=== PATIENT | male | born 1995 | race Caucasian/White ===

== ENCOUNTER 2016-11-25 07:31 | Emergency (ER) | payer BC, OTHER ==
[~2016-11-25] VITALS: Ht 185.4 cm; Wt 138.9 kg
[~2016-11-25 07:31] MED LIST: CLAR500T3 PO; METR-163 PO; OMEP20CA59 PO
[2016-11-25 07:34] VITALS: TEMP 36.4; Ht 185.4 cm; Wt 138.9 kg
[2016-11-25] MEDS ORDERED: PROPARACAINE HCL 0.5% OP SOLN 15 ML BTL ONE (07:49)
[2016-11-25] MEDS ORDERED: DEXT-119 PO (07:58)
--- NOTE | 2016-11-25 08:00 | EMERGENCY ROOM VISIT NOTE ---
History First contact with patient: 07:38 Chief Complaint: EYE ASSESSMENT Stated Complaint: EYE IRRITATION, SINUS INFECTION History of Present Illness The patient is a 21 year old male who presents to the Emergency Room with complaints of a chemical exposure of the patient's eyes. The patient reports that approximately 6 hours ago, he was sprayed with a chemical at work. He believes that it was most likely [place] [address] [employer] student records coordinator. He reports that initially, he rinsed out the eyes for approximately 4 minutes but then had to return to work. He states that one hour after the injury, he again rinsed out the eyes. The patient does not wear glasses or contacts. He currently is complaining of burning of both eyes, especially of the skin above the right eye. He states that the vision in the right eye is slightly blurry. Additionally, the patient reports that he has had yellowish nasal drainage in the mornings for the past several days. He occasionally has pain in his upper sinuses. He denies any cough, headaches, fevers, neck pain, sore throat or earaches. The patient rates his overall discomfort a 4/10. The patient also complains of occasional right ankle pain. He reports that he fractured his ankle 2 years ago and was seen by orthopedic provider in [place].. He reports he is unsure if he wore a cast or a walking boot. He states that he has occasional pain in the ankle while walking and especially with running. He was seen by another provider for this and they recommended at that time that he come to the emergency department for an x-ray, but he states that he was not able to at that time. The patient denies any numbness or weakness in the ankle. He has not followed up with his orthopedic provider for this. Review of Systems A complete 10-point Review of Systems was discussed with the patient, with pertinent positives and negatives listed in the History of Present Illness. All remaining Review of Systems questions can be considered negative unless otherwise specified. Past Medical/Surgical History No significant past medical history. Social History Smoking Status: Never Smoker Alcohol Use: occasionally Housing Status: lives with roommate Occupation Status: employed Current/Historical Medications Scheduled Dextromethorphan-Phenylephrine (Day Time Cold/Flu Relief), Unknown Dose PO BID Fluticasone Propionate (Nasal) (Flonase Allergy Relief), 1 SPRAY KAYDEN DAILY Allergies Coded Allergies: Amoxicillin (Verified Allergy, Unknown, ., 11/25/16) Physical Exam Vital Signs Date Time Temp Pulse Resp B/P Pulse Ox O2 Delivery O2 Flow Rate FiO2 11/25/16 09:06 83 18 120/69 96 Room Air 11/25/16 07:34 36.4 77 16 165/88 97 Room Air Right Eye Acuity: 20/70 Left Eye Acuity: 20/50 Physical Exam VITALS: Vitals are noted on the nurse's note and reviewed by myself. Vital signs stable. GENERAL: This is a 21-year-old male, in no acute distress, nondiaphoretic, well- developed well-nourished. SKIN: There is mild erythema at the right upper eyelid. EARS: External auditory canals clear, tympanic membranes pearly garcias without erythema or effusion bilaterally. EYES: Visual acuity 20/70 right eye, 20/50 left eye. Pupils equal round and reactive to light and accommodation. Moderate conjunctival injection right greater than left. No fluorescein uptake under UV light. No foreign body seen on foot lamp examination. NOSE: Patent, turbinates without inflammation or discharge. No sinus tenderness. MOUTH: Mucous membranes moist. Tonsils are not enlarged. Pharynx without erythema or exudate. NECK: Supple without nuchal rigidity. No lymphadenopathy. HEART: Regular rate and rhythm without murmurs gallops or rubs. LUNGS: Clear to auscultation bilaterally without wheezes, rales or rhonchi. No retractions or accessory muscle use. MUSCULOSKELETAL: No deformities of the right ankle. No ecchymosis, erythema or warmth. There is mild tenderness of the medial aspect of the distal tibia. Full range of motion of the ankle. Strength 5/5. NEURO: Patient was alert and oriented to person place and time. Normal sensation to light and sharp touch. Medical Decision & Procedures ER Provider Diagnostic Interpretation: RIGHT ANKLE MIN 3 VIEWS ROUTINE CLINICAL HISTORY: Right ankle pain. History of prior fracture. COMPARISON: None. DISCUSSION: Postsurgical changes are evident. There is evidence for a previously internally fixated distal fibular fracture. There is evidence for a previously internally fixated medial malleolar fracture. There are mild degenerative changes present within the tibiotalar joint. There are no acute fractures. There is a subtle lucency in the region of the tibial plafond. This may represent a small osteochondral defect. IMPRESSION: Postsurgical change. No acute fractures. Equivocal small osteochondral defect involving the tibial plafond. Medications Administered Medications (Trade) Dose Ordered Sig/Deonna Route Start Time Stop Time Status Last Admin Dose Admin Proparacaine HCl (Alcaine 0.5% Oph Soln) 225 drops STK-MED ONCE .ROUTE 11/25/16 07:49 11/25/16 07:52 DC 11/25/16 07:49 225 DROPS Ciprofloxacin HCl (Ciprofloxacin 0.3% Op Soln) 2 drops Q4H ONCE OP 11/25/16 08:30 11/25/16 08:31 DC 11/25/16 08:30 2 DROPS Medical Decision The patient presents with multiple complaints. I did contact the [facility] regarding his chemical exposure. They felt that further flushing of the eye would not be beneficial given that the injury occurred 6 hours ago. They did recommend performing a slit lamp examination and treating any findings. Slit-lamp examination was unremarkable. The patient was placed on Ciloxan drops to prevent any infection in the affected eye. The patient additionally complained of sinus pain and nasal congestion. I do not feel that his symptoms represent a bacterial sinusitis. He was instructed to take Flonase and follow-up with his primary care provider regarding the symptoms. An x-ray was obtained of the patient's right ankle at his request. He reports he broke the ankle a few years ago and has had continued pain. There are no acute findings and the patient was instructed to follow-up with his established orthopedic provider regarding this. Impression Primary Impression: Chemical exposure of eye Additional Impressions: Right ankle pain Nasal congestion Departure Information Dispostion Home / Self-Care Condition GOOD Prescriptions Fluticasone Propionate (Nasal) (Flonase Allergy Relief) 50 Mcg/Act Spr 1 SPRAY KAYDEN DAILY, #1 BTL Prov: Lucita Martini .CARISSA 11/25/16 Referrals No Doctor, Assigned (PCP) Tom Meyers D.O. Patient Instructions My [facility] Additional Instructions You have been prescribed Ciloxan eye drops. This is an antibiotic which will help to prevent an infection from developing in your affected eye. You should use 2 drops in the affected eye every 2 hours while awake for the first 2 days, then every 4 hours for the remaining 5 days. This is a total of a 7-day course for these antibiotic eye drops. You should schedule a follow-up with an aviation tactical readiness officer within 48 hours for a recheck of your eyes. Use the Flonase nasal spray as directed for nasal congestion. For pain control, you can use the following [id number] medicines (if >12 yo): - Regular strength (325mg/tab) Tylenol (acetaminophen) 2 tabs every 4-6 hours as needed. Do not exceed 12 tablets in a 24 hour period. Avoid taking more than 4 grams (4000 mg) of Tylenol per day. This includes any other sources of acetaminophen you may take on a regular basis. - Regular strength (200 mg/tab) Advil (ibuprofen) 1-2 tabs every 4-6 hours as needed. Do not exceed a dose of 3200 mg per day. Follow-up with your orthopedic provider regarding your ankle pain. Return to the emergency department with any worsening vision, worsening pain in the eyes, or any other new/concerning symptoms. Problem Qualifiers Additional Impressions: Right ankle pain Chronicity: chronic Qualified Codes: M25.571 - Pain in right ankle and joints of right foot; G89.29 - Other chronic pain
[2016-11-25] MEDS ORDERED: CIPROFLOXACIN HCL 0.3% OP SOLN 2.5 ML BTL OP ONE (08:30)
[2016-11-25] MEDS ORDERED: FLUT0.15 NAE (08:41)
--- NOTE | 2016-11-25 08:56 | DIAGNOSTIC IMAGING REPORT ---
RIGHT ANKLE MIN 3 VIEWS ROUTINE CLINICAL HISTORY: Right ankle pain. History of prior fracture. COMPARISON: None. DISCUSSION: Postsurgical changes are evident. There is evidence for a previously internally fixated distal fibular fracture. There is evidence for a previously internally fixated medial malleolar fracture. There are mild degenerative changes present within the tibiotalar joint. There are no acute fractures. There is a subtle lucency in the region of the tibial plafond. This may represent a small osteochondral defect. IMPRESSION: Postsurgical change. No acute fractures. Equivocal small osteochondral defect involving the tibial plafond. Electronically signed by: Edy Mora M.D. 11/25/2016 8:55 AM Dictated Date/Time: 11/25/2016 8:53 AM
[2016-11-25 09:06] VITALS: BP 120/69; PULSE 83; O2SAT 96
== END 2016-11-25 09:25 | disposition home or self-care (01) ==
LOC: C.EDB 07:32 → C.EDA 09:25
DX: T49.5X1A Poisoning by ophthalmological drugs and preparations, accidental (unintentional), initial encounter (principal); Y99.0 Civilian activity done for income or pay; M25.571 Pain in right ankle and joints of right foot; R09.81 Nasal congestion

== ENCOUNTER 2017-11-10 17:31 | Emergency (ER) | payer OTHER ==
[~2017-11-10] VITALS: Ht 188 cm; Wt 129.0 kg
[~2017-11-10 17:31] MED LIST changes: -CLAR500T3 PO; +DEXT-119 PO; +FLUT0.15 NAE; -METR-163 PO; -OMEP20CA59 PO
[2017-11-10 17:32] VITALS: TEMP 36.7; Ht 188 cm; Wt 129.0 kg
[2017-11-10] MEDS ORDERED: PANTOprazole INJ 40 MG in SYRINGE 0 ML IV ONE (18:00)
--- NOTE | 2017-11-10 18:09 | EMERGENCY ROOM VISIT NOTE ---
History First contact with patient: 17:33 Chief Complaint: GI ASSESSMENT Stated Complaint: PASSING BLOOD,STOMACH PAIN Nursing Triage Summary: pt to the ED epigastric abd pain and LUQ pain since wed with "passing blood" c/o bright red blood est .5 cup and then got better and then it returned several days later History of Present Illness The patient is a 22 year old male who presents to the Emergency Room with complaints of epigastric and LUQ abdominal pain and BRBPR. He reports having epigastric pain intermittently, sometimes in association with foods. Doesn't have the greatest diet. Does drink alcohol few times a week. He he's had BRBPR after a bowel movement a few times intermittently about 2-3 days ago. He has not had a bowel movement in 2 days so he has not had any blood either. He does report some shortness of breath. He says that he had passed blood without any stool during a couple of these episodes. He denies pain, burning or straining with his BM. He does not that his stools have been more difficult to pass since taking clindamycin for ingrown toe nail 3 weeks ago. He does have personal history of GI bleeding. Reports having had a colonoscopy 3 years ago that reportedly showed fissures and hemorrhoids (unsure) Denies family history of Crohn's/UC Denies recent travel Denies diarrhea, vomiting, weight loss Denies fevers, chills, dizziness/lightheadedness. Review of Systems See above for pertinent positives & negatives. A total of 10 systems reviewed and were otherwise negative. Social History Smoking Status: Never Smoker Alcohol Use: occasionally Housing Status: lives with roommate Occupation Status: employed Current/Historical Medications No Active Prescriptions or Reported Meds Physical Exam Vital Signs Date Time Temp Pulse Resp B/P (MAP) Pulse Ox O2 Delivery O2 Flow Rate FiO2 11/10/17 19:32 68 16 122/68 98 Room Air 11/10/17 18:35 65 20 117/66 Room Air 11/10/17 17:32 36.7 84 16 139/89 93 Room Air Physical Exam GENERAL: Patient is awake alert in no acute distress EYES: The conjunctivae are clear. The pupils are round and reactive. EARS, NOSE, MOUTH AND THROAT: Posterior oropharynx is clear, TM's clear bilaterally NECK: The neck is nontender and supple. RESPIRATORY: Normal respiratory effort, no evidence of wheezing rhonchi or rales CARDIOVASCULAR: Regular rate and rhythm, no murmurs, s1s2 present GASTROINTESTINAL: The abdomen is soft. Bowel sounds are present in all quadrants. mild epigastric tenderness, no hsm, no guarding/rigidity or rebound tenderness BACK: no cva tenderness MUSCULOSKELETAL/EXTREMITIES: There is no evidence of gross deformity full range of motion is noted in the hips and shoulders SKIN: There is no obvious evidence of any rash. NEUROLOGIC: Patient is awake alert and oriented x3 RECTAL: normal tone, no evidence of fissures or external hemorrhoids, ball of stool, Hemoccult negative Medical Decision & Procedures Laboratory Results 11/10/17 18:08 Red Blood Count 5.03, Mean Corpuscular Volume 85.9, Mean Corpuscular Hemoglobin 30.2, Mean Corpuscular Hemoglobin Concent 35.2, Mean Platelet Volume 9.5, Neutrophils (%) (Auto) 46.8, Lymphocytes (%) (Auto) 38.7, Monocytes (%) (Auto) 9.7, Eosinophils (%) (Auto) 4.0, Basophils (%) (Auto) 0.5, Neutrophils # (Auto) 2.78, Lymphocytes # (Auto) 2.30, Monocytes # (Auto) 0.58, Eosinophils # (Auto) 0.24, Basophils # (Auto) 0.03 11/10/17 18:08 Test 11/10/17 18:08 White Blood Count 5.95 K/uL (4.8-10.8) Red Blood Count 5.03 M/uL (4.7-6.1) Hemoglobin 15.2 g/dL (14.0-18.0) Hematocrit 43.2 % (42-52) Mean Corpuscular Volume 85.9 fL (80-100) Mean Corpuscular Hemoglobin 30.2 pg (25-34) Mean Corpuscular Hemoglobin Concent 35.2 g/dl (32-36) Platelet Count 208 K/uL (130-400) Mean Platelet Volume 9.5 fL (7.4-10.4) Neutrophils (%) (Auto) 46.8 % Lymphocytes (%) (Auto) 38.7 % Monocytes (%) (Auto) 9.7 % Eosinophils (%) (Auto) 4.0 % Basophils (%) (Auto) 0.5 % Neutrophils # (Auto) 2.78 K/uL (1.4-6.5) Lymphocytes # (Auto) 2.30 K/uL (1.2-3.4) Monocytes # (Auto) 0.58 K/uL (0.11-0.59) Eosinophils # (Auto) 0.24 K/uL (0-0.5) Basophils # (Auto) 0.03 K/uL (0-0.2) RDW Standard Deviation 39.0 fL (36.4-46.3) RDW Coefficient of Variation 12.3 % (11.5-14.5) Immature Granulocyte % (Auto) 0.3 % Immature Granulocyte # (Auto) 0.02 K/uL (0.00-0.02) Anion Gap 5.0 mmol/L (3-11) Est Creatinine Clear Calc Drug Dose 195.3 ml/min Estimated GFR () 143.0 Estimated GFR (Non- 123.4 BUN/Creatinine Ratio 17.5 (10-20) Calcium Level 8.8 mg/dl (8.5-10.1) Total Bilirubin 0.6 mg/dl (0.2-1) Aspartate Amino Transf (AST/SGOT) 19 U/L (15-37) Alanine Aminotransferase (ALT/SGPT) 31 U/L (12-78) Alkaline Phosphatase 59 U/L (45-117) Total Protein 6.9 gm/dl (6.4-8.2) Albumin 3.7 gm/dl (3.4-5.0) Globulin 3.2 gm/dl (2.5-4.0) Albumin/Globulin Ratio 1.1 (0.9-2) Lipase 107 U/L (73-393) Medications Administered Medications (Trade) Dose Ordered Sig/Deonna Route Start Time Stop Time Status Last Admin Dose Admin Pantoprazole Sodium 40 mg/ Syringe 10 ml @ 5 mls/min NOW ONCE IV 11/10/17 18:00 11/10/17 18:02 DC 11/10/17 18:29 5 MLS/MIN Medical Decision This is a 22 y/o M who presents with BRBPR. DDx: Hemorrhoids, anal fissures, ulcerative colitis, crohn's, colon ca. etc. CBC was without leucocytosis or anemia. CMP was normal. Hemoccult was negative. The patient had very mild epigastric pain that maybe related to acid reflux. He does report ongoing burning/discomfort, dietary changes that could use improvement. He was given a dose of Protonix. He has a history of colonoscopy 3 years ago for similar bleeding that showed internal hemorrhoids. He does have follow up in 2 does scheduled already with gastroenterology. He was advised to keep his appointment for discussion of repeat colonoscopy. He was recommended to improve his diet, increase his fiber intake/take a stool softener. If he has any further bleeding, shortness of breath, light headed ness, he was advised to come back to the ER. Impression Primary Impression: BRBPR (bright red blood per rectum) Departure Information Prescriptions No Active Prescriptions or Reported Meds Referrals No Doctor, Assigned (PCP) Patient Instructions My [facility]
[2017-11-10 18:20] LABS: BASO % 0.5 %; BASO ABS # 0.03 K/uL (0-0.2); EOS ABS # 0.24 K/uL (0-0.5); HEMATOCRIT 43.2 % (42-52); HEMOGLOBIN 15.2 g/dL (14.0-18.0); IG# 0.02 K/uL (0.00-0.02); LYMPH % 38.7 %; MEAN CELL VOLUME 85.9 fL (80-100); MEAN CORPUSCULAR HEMOGLOBIN 30.2 pg (25-34); MEAN CORPUSCULAR HGB CONC 35.2 g/dl (32-36); MEAN PLATELET VOLUME 9.5 fL (7.4-10.4); MONO % 9.7 %; MONO ABS # 0.58 K/uL (0.11-0.59); NEUT % 46.8 %; NEUT ABS # 2.78 K/uL (1.4-6.5); PLATELET COUNT 208 K/uL (130-400); RED CELL DISTRIBUTION WIDTH CV 12.3 % (11.5-14.5); WHITE BLOOD COUNT 5.95 K/uL (4.8-10.8)
--- NOTE | 2017-11-10 18:32 | EMERGENCY ROOM VISIT NOTE ---
ED Visit Note First contact with patient: 17:32 Resident Physician Supervision Note: I was present with Dr. Longoria during the history and exam. I discussed the case with the resident and agree with the findings and plan as documented in the note. Documented By: Carlos Rivera
[2017-11-10 18:37] LABS: ALBUMIN 3.7 gm/dl (3.4-5.0); CALCIUM 8.8 mg/dl (8.5-10.1); CREATININE 0.84 mg/dl (0.60-1.40); POTASSIUM 3.5 mmol/L (3.5-5.1)
[2017-11-10 18:39] LABS: TOTAL PROTEIN 6.9 gm/dl (6.4-8.2)
[2017-11-10 19:32] VITALS: BP 122/68; PULSE 68; O2SAT 98
== END 2017-11-10 19:34 | disposition home or self-care (01) ==
LOC: C.EDB 17:32 → C.EDA 19:34
DX: K62.5 Hemorrhage of anus and rectum (principal); R10.13 Epigastric pain; R10.12 Left upper quadrant pain; R06.02 Shortness of breath

== ENCOUNTER → 2017-11-17 | Outpatient (CLI) | payer OTHER ==
--- NOTE | 2017-11-17 09:45 | DIAGNOSTIC IMAGING REPORT ---
GI SERIES W/AIR ROUTINE CLINICAL HISTORY: R10.9 Abdominal painR10.816 Epigastric abdominal tendernessRADFLpain. Nausea. COMPARISON STUDY: None FLUOROSCOPY TIME: 2.3 minutes. FINDINGS: The esophagus is normal in course and caliber. Gastroesophageal junction is normal. Size and configuration stomach are normal. Duodenal sweep is normal with the duodenal bulb unremarkable IMPRESSION: Normal study The above report was generated using voice recognition software. It may contain grammatical, syntax or spelling errors. Electronically signed by: Rey Angelo M.D. 11/17/2017 9:43 AM Dictated Date/Time: 11/17/2017 9:40 AM
== END | disposition home or self-care (01) ==
LOC: C.RAD 09:03
PROVIDERS: ATTEND Registered Nurse
DX: R10.9 Unspecified abdominal pain (principal); R10.816 Epigastric abdominal tenderness